=== PATIENT | female | born 1990 | race Caucasian/White ===

== ENCOUNTER 2017-07-01 11:13 | Emergency (ER) | payer OTHER ==
[2017-07-01 11:31] VITALS: PULSE 83; RESP 16; TEMP 98; O2SAT 99; BMI 37.1
[2017-07-01] MEDS ORDERED: Lactated Ringer's 1,000 ML IV SCH (12:15)
--- NOTE | 2017-07-01 12:15 | ED PDOC ---
Arrival/HPI - General Historian: Patient, Masonry Supervisor - History of Present Illness Time/Duration: Prior to Arrival, 1 week Symptom Onset: Sudden Symptom Course: Improving Quality: Pressure, Tightness Severity Level: 8 Activities at Onset: Rest <Dev Juarez - Last Filed: 07/01/17 13:29> <Cuong Jones DO - Last Filed: 07/01/17 22:26> - General Chief Complaint: Headache - History of Present Illness Narrative History of Present Illness (Text): 07/01/17 12:11 26F presents to [facility] [place] [facility] w/ Right sided retro-orbital headaches that first started 1 week ago, and episodes last > 1 hr. Pain is associated w/ numbness down the right arm, rhinorrhea. Some episodes will awake in the middle of the night. Attempted to take Motrin, and did not get better. Denies photophobia, loss of consciousness, dizziness, fevers, chills, chest pain , shortness of breath, nausea, vomiting, diarrhea PMH: denies PSH: C-Sec ALL: NKDA SocialHx: Wears an IUD, denies ETOH, tobacco, recreational drug use (Dev Juarez) Past Medical History - Provider Review Nursing Documentation Reviewed: Yes - Travel History Have you recently traveled outside [place] w/in the past 3 mons?: No - Past History Past History: Non-Contributing - Psychiatric Hx Substance Use: No <Dev Juarez - Last Filed: 07/01/17 13:29> Family/Social History - Physician Review Nursing Documentation Reviewed: Yes Family/Social History: Neoplasm/Cancer (Grandfather of brain cancer) Smoking Status: Never Smoked Hx Alcohol Use: No Hx Substance Use: No <Dev Juarez - Last Filed: 07/01/17 13:29> Allergies/Home Meds <Dev Juarez - Last Filed: 07/01/17 13:29> <Cuong Jones DO - Last Filed: 07/01/17 22:26> Allergies/Adverse Reactions: Allergies No Known Allergies Allergy (Verified 07/01/17 11:46) Review of Systems - Review of Systems Constitutional: Normal. absent: Fevers, Night Sweats Eyes: Vision Changes, Photophobia ENT: Rhinorrhea. absent: Normal, Tinnitus, TMJ Pain Respiratory: Normal. absent: SOB, Cough Cardiovascular: Normal. absent: Chest Pain, Syncope Gastrointestinal: Normal. absent: Abdominal Pain, Stool Changes Skin: Normal <MerchantDev - Last Filed: 07/01/17 13:29> Physical Exam Vital Signs Reviewed: Yes Temperature: Afebrile Blood Pressure: Normal Pulse: Regular Respiratory Rate: Normal Appearance: Positive for: Well-Appearing, Non-Toxic, Comfortable Pain Distress: None Mental Status: Positive for: Alert and Oriented X 3 - Systems Exam Head: Present: Atraumatic, Normocephalic Pupils: Present: PERRL Extroacular Muscles: Present: EOMI Conjunctiva: Present: Normal. No: Injected Ears: No: Erythema, Normal Canal Mouth: Present: Moist Mucous Membranes Pharnyx: No: ERYTHEMA, EXUDATE Nose (Internal): Present: Rhinorrhea Neck: Present: Normal Range of Motion Respiratory/Chest: Present: Clear to Auscultation, Good Air Exchange. No: Respiratory Distress, Accessory Muscle Use, Wheezes Cardiovascular: Present: Regular Rate and Rhythm, Normal S1, S2. No: Murmurs Abdomen: Present: Normal Bowel Sounds. No: Tenderness, Distention, Peritoneal Signs, Guarding Upper Extremity: Present: Normal Inspection, Capillary Refill < 2s. No: Cyanosis, Edema Lower Extremity: Present: Normal Inspection. No: Edema Neurological: Present: GCS=15, CN II-XII Intact, Speech Normal, Norm Deep Tendon Reflexes, Gait Normal Skin: Present: Warm Psychiatric: Present: Alert, Oriented x 3 <Dev Juarez - Last Filed: 07/01/17 13:29> Vital Signs Temp Pulse Resp BP Pulse Ox 07/01/17 13:20 16 121/73 99 07/01/17 11:29 98.0 F 83 16 138/78 99 Medical Decision Making Re-evaluation Time: 13:10 (Head pain has improved since medication and sitting in dark room) - EKG Interpretation Comparison: No previous EKG avail. <Dev Juarez - Last Filed: 07/01/17 13:29> <Cuong Jones DO - Last Filed: 07/01/17 22:26> ED Course and Treatment: 07/01/17 12:19 Working diagnosis Migranes vs cluster headache will bolus 1L of fluid, give reglan and toradol will revaluate (Dev Juarez) - Medication Orders Current Medication Orders: Discontinued Medications Lactated Ringer's (Lactated Ringer's) 1,000 mls @ 1,000 mls/hr IV .Q1H RAY Stop: 07/01/17 13:14 Last Admin: 07/01/17 12:31 Dose: 1,000 mls/hr eMAR Start Stop Document 07/01/17 12:31 MS (Rec: 07/01/17 12:34 MS [id number]) Intravenous Solution Start Date 07/01/17 Start Time 12:34 End Date 07/01/17 End time 13:34 Total Infusion Time 60 Ketorolac Tromethamine (Toradol) 30 mg IVP STAT STA Stop: 07/01/17 12:07 Last Admin: 07/01/17 12:26 Dose: 30 mg MAR Pain Assessment Document 07/01/17 12:26 MS (Rec: 07/01/17 12:31 MS [id number]) Pain Reassessment Is this a pain reassessment? No Sleep Is patient sleeping during reassessment? 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 JENNIFFER has examined the patient and agrees with the treatment plan. <Cuong Jones DO - Last Filed: 07/01/17 22:26> Disposition/Present on Arrival - Present on Arrival Any Indicators Present on Arrival: No History of DVT/PE: No History of Uncontrolled Diabetes: No Urinary Catheter: No History of Decub. Ulcer: No History Surgical Site Infection Following: None - Disposition Have Diagnosis and Disposition been Completed?: Yes Disposition Time: 13:30 <Dev Juarez - Last Filed: 07/01/17 13:29> - Disposition Have Diagnosis and Disposition been Completed?: Yes Disposition Time: 12:50 <Cuong Jones DO - Last Filed: 07/01/17 22:26> - Disposition Diagnosis: Migraine Disposition: HOME/ ROUTINE Condition: GOOD Discharge Instructions (ExitCare): Headache, Adult (DC) Additional Instructions: Thank you for letting us take care of you today. The emergency medical care you received today was directed at your acute symptoms. If you were prescribed any medication, please fill it and take as directed. It may take several days for your symptoms to resolve. Return to the Emergency Department if your symptoms worsen, do not improve, or if you have any other problems. Please contact your doctor or call one of the physicians/clinics you have been referred to that are listed on the Patient Visit Information form that is included in your discharge packet. Bring any paperwork you were given at discharge with you along with any medications you are taking to your follow up visit. Our treatment cannot replace ongoing medical care by a primary care provider (PCP) outside of the emergency department. Thank you for allowing the [facility] team to be part of your care today. Follow up with your doctor in 2-3 days for re-evaluation and further management. Prescriptions: Ibuprofen [Motrin] 600 mg PO Q6 PRN #20 tab PRN Reason: Pain, Moderate (4-7) Referrals: PCP,NO [Primary Care Provider] - Follow up with primary Forms: [employer] (Sinhala)
[2017-07-01 13:20] VITALS: BP 121/73
== END 2017-07-01 14:05 | disposition home or self-care (01) ==
LOC: ED 11:13
DX: G43.909 Migraine, unspecified, not intractable, without status migrainosus (principal)
CPT/HCPCS: 96361; 96374; 96375; 99285; J1885; J2765; J7120